=== PATIENT | female | born 1975 | race Caucasian/White ===

== ENCOUNTER → 2023-10-21 09:43 | Outpatient (REF) | payer BC, SELFPAY | LOC: HWRAD 09:43 | PROVIDERS: ATTENDING PHYSICIAN Obstetrics & Gynecology; FAMILY PHYSICIAN Family Medicine; REFERRING PHYSICIAN Internal Medicine Medical Oncology | DX: N92.0 Excessive and frequent menstruation with regular cycle (principal); Z85.3 Personal history of malignant neoplasm of breast | CPT/HCPCS: 76830; 76856 ==

== ENCOUNTER 2024-02-11 06:35 | Day surgery (SDC) | payer BC, SELFPAY ==
[2024-02-01 11:54] LABS: % Basophils 0.7 % (0-2); % Eosinophils 6.7 % (0-6); % Immature Granulocytes 0.3 % (0-0.5); % Monocytes 6.8 % (1.7-9.3); % Neutrophils 48.5 % (42.2-75.2); Absolute Basophils 0.1 10^3/uL (0-0.2); Absolute Eosinophils 0.5 10^3/uL (0-0.7); Absolute Lymphocytes 2.5 10^3/uL (1.2-3.4); Absolute Monocytes 0.5 10^3/uL (0.1-0.6); Absolute Neutrophils 3.3 10^3/uL (1.4-6.5); Hematocrit 40.2 % (37.0-47.0); Hemoglobin 13.2 g/dL (12.0-16.0); Mean Corp Hgb Conc. 32.8 g/dL (33.0-37.0); Mean Corpuscular Hgb 29.9 pg (27.0-31.0); Mean Platelet Volume 10.7 fL (7.4-10.4); Nucleated Red Blood Cells % 0 %; Platelet Count 224 10^3/uL (130-400); Red Blood Cell Count 4.42 10^6/uL (4.20-5.40); Red Cell Dist. Width 13.3 % (11.5-14.5); White Blood Cell Count 6.7 10^3/uL (4.8-10.8)
[2024-02-01 12:37] LABS: Blood Urea Nitrogen 15 mg/dl (7-17); Calcium 9.4 mg/dl (8.4-10.2); Carbon Dioxide 28 mmol/L (22-30); Chloride 106 mmol/L (98-107); Glucose 91 mg/dl (70-99); Sodium 141 mmol/L (135-145); eGFR > 60.00
[2024-02-01 12:55] LABS: Beta HCG Quantitative < 2.39 mIU/ml
[2024-02-01 14:13] VITALS: BMI 40.6
[2024-02-11 12:28] VITALS: BP 122/75
[2024-02-11 12:33] VITALS: BMI 40.6
[2024-02-11] MEDS: NORMOSOL-R/PLASMALYTE-A 1000 IV (12:33)
[2024-02-11] MEDS: NEURONTIN 100 MG PO (12:34)
[2024-02-11] MEDS: TYLENOL 1000 MG PO (12:34)
[2024-02-11 14:19] VITALS: BP 103/41; BP 122/75
[2024-02-11 14:30] VITALS: BP 119/56
[2024-02-11 14:45] VITALS: BP 124/74
--- NOTE | 2024-02-11 15:02 | W.IMMPOSTOP ---
Surgical Immed Post Op Note
-
Primary Surgeon: Radha De Santiago DO
Assisting Surgeon: none
Pre-op Diagnosis: Menorrhagia, abnormal ultrasound with possible cystic region in endometrial cavity; hx breast cancer on tamoxifen
Post-op Diagnosis: same; endometrial polyp
Procedure Performed: Removal of Paragard IUD, hysteroscopy D&C, insertion of new Paragard IUD
Anesthesia Type: MAC with IV sedation
Specimen / Cultures: 1. endocervical curettings 2. endometrial curettings and polyp
Estimated Blood Loss: 5ml
Complications: none
Operative Findings: Paragard IUD removed, intact and discarded. Uterus sounded to 10 cm, small polypoid structure noted in lower endometrial cavity. bilateral tubal ostia seen. Paragard Exp August 2028 Lot #[id number]
Complications: none
Counts: correct times 2.
Stable to recovery.
[2024-02-11 15:15] VITALS: BP 121/68
== END 2024-02-11 15:33 | disposition home or self-care (01) ==
LOC: SDS 06:35
PROVIDERS: ATTENDING PHYSICIAN Obstetrics & Gynecology; FAMILY PHYSICIAN Family Medicine; OTHER PHYSICIAN Internal Medicine Medical Oncology
DX: N92.0 Excessive and frequent menstruation with regular cycle (principal); N84.0 Polyp of corpus uteri; R93.89 Abnormal findings on diagnostic imaging of other specified body structures; Z97.5 Presence of (intrauterine) contraceptive device; Z79.810 Long term (current) use of selective estrogen receptor modulators (SERMs); Z85.3 Personal history of malignant neoplasm of breast
CPT/HCPCS: 58558; 58301; 88305; 36415; 80048; 84702; 85025; 86850; 86900; 86901; 93005